=== PATIENT | male | born 1995 | race Caucasian/White ===

== ENCOUNTER 2017-09-14 15:41 | Emergency (ER) | payer OTHER ==
[~2017-09-14] VITALS: Ht 175.3 cm; Wt 77.2 kg
[~2017-09-14 15:41] MED LIST: LISD50CA4 PO; PERM1LIQ TD
[2017-09-14 15:44] VITALS: Ht 175.3 cm; Wt 77.2 kg
--- NOTE | 2017-09-14 16:05 | EMERGENCY ROOM VISIT NOTE ---
History Report prepared by Thomas: Liza Anders Under the Supervision of: Dr. Rajiv La M.D. 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 Positive coughing up dark blood. Negative lightheadedness and abdominal pain. Movement is a worsening factor for his pain and he describes it as "tightness more than pain." He reports he was playing lacrosse and got hit with the ball. He states he was drinking all day yesterday. Source of History: patient Onset: 1 hour precinct captain Position: other (left rib) Quality: other ("tightness") Modifying Factors (Worsening): movement Associated Symptoms: + cough (dark blood) Note: Negative lightheadedness. Review of Systems See HPI for pertinent positives and negatives. A total of ten systems were reviewed and were otherwise negative. Past Medical & Surgical Medical Problems: (1) ADHD (attention deficit hyperactivity disorder) (2) No pertinent past medical history Surgical Problems: (1) H/O adenoidectomy Family History Patient reports no known family medical history. Social History Smoking Status: Never Smoker Alcohol Use: occasionally Marital Status: single Housing Status: lives with roommate Occupation Status: [employer] student Current/Historical Medications Scheduled Lisdexamfetamine Dimesylate (Vyvanse), 50 MG PO DAILY Allergies Coded Allergies: No Known Allergies (Unverified , 08/06/15) Physical Exam Vital Signs Date Time Temp Pulse Resp B/P (MAP) Pulse Ox O2 Delivery O2 Flow Rate FiO2 09/14/17 15:44 36.9 91 18 135/76 95 Room Air Physical Exam GENERAL: Awake, alert, well-appearing, NAD HENT: Normocephalic, atraumatic. EYES: Normal conjunctiva. Sclera non-icteric. NECK: Supple. No nuchal rigidity. FROM. RESPIRATORY: CTAB, no rhonchi, wheezing, crackles CHEST: Mild reproducible left lateral rib discomfort. 4 x 4 cm area of redness over the same site CARDIAC: RRR, no MRG ABDOMEN: Soft, NTND, BS+ MSK: No chest wall TTP, no LE edema NEURO: GCS 15, CN 2-12 intact, moves all 4s on command SKIN: No rash or jaundice noted. Medical Decision & Procedures ER Provider Diagnostic Interpretation: Radiology results as stated below per my review and radiologist interpretation: L RIBS UNILATERAL WITH PA CHEST CLINICAL HISTORY: L rib pain s/p lacrosse ball to chest trauma COMPARISON STUDY: None FINDINGS: Negative left ribs. Negative chest. IMPRESSION: Negative left ribs. Negative chest. The above report was generated using voice recognition software. It may contain grammatical, syntax or spelling errors. Electronically signed by: Vasiliy Enrique M.D. 09/14/2017 4:45 PM Laboratory Results 09/14/17 16:20 Red Blood Count 5.19, Mean Corpuscular Volume 86.5, Mean Corpuscular Hemoglobin 30.4, Mean Corpuscular Hemoglobin Concent 35.2, Mean Platelet Volume 9.5, Neutrophils (%) (Auto) 77.6, Lymphocytes (%) (Auto) 13.9, Monocytes (%) (Auto) 7.4, Eosinophils (%) (Auto) 0.5, Basophils (%) (Auto) 0.3, Neutrophils # (Auto) 8.68, Lymphocytes # (Auto) 1.55, Monocytes # (Auto) 0.83, Eosinophils # (Auto) 0.06, Basophils # (Auto) 0.03 09/14/17 16:20 Test 09/14/17 16:20 White Blood Count 11.18 K/uL (4.8-10.8) Red Blood Count 5.19 M/uL (4.7-6.1) Hemoglobin 15.8 g/dL (14.0-18.0) Hematocrit 44.9 % (42-52) Mean Corpuscular Volume 86.5 fL (80-100) Mean Corpuscular Hemoglobin 30.4 pg (25-34) Mean Corpuscular Hemoglobin Concent 35.2 g/dl (32-36) Platelet Count 179 K/uL (130-400) Mean Platelet Volume 9.5 fL (7.4-10.4) Neutrophils (%) (Auto) 77.6 % Lymphocytes (%) (Auto) 13.9 % Monocytes (%) (Auto) 7.4 % Eosinophils (%) (Auto) 0.5 % Basophils (%) (Auto) 0.3 % Neutrophils # (Auto) 8.68 K/uL (1.4-6.5) Lymphocytes # (Auto) 1.55 K/uL (1.2-3.4) Monocytes # (Auto) 0.83 K/uL (0.11-0.59) Eosinophils # (Auto) 0.06 K/uL (0-0.5) Basophils # (Auto) 0.03 K/uL (0-0.2) RDW Standard Deviation 40.3 fL (36.4-46.3) RDW Coefficient of Variation 12.6 % (11.5-14.5) Immature Granulocyte % (Auto) 0.3 % Immature Granulocyte # (Auto) 0.03 K/uL (0.00-0.02) Prothrombin Time 11.5 SECONDS (9.0-12.0) Prothromb Time International Ratio 1.1 (0.9-1.1) Activated Partial Thromboplast Time 25.9 SECONDS (21.0-31.0) Partial Thromboplastin Ratio 1.0 Anion Gap 6.0 mmol/L (3-11) Est Creatinine Clear Calc Drug Dose 127.1 ml/min Estimated GFR () 137.3 Estimated GFR (Non- 118.5 BUN/Creatinine Ratio 19.3 (10-20) Calcium Level 9.1 mg/dl (8.5-10.1) Laboratory results reviewed by me Medications Administered Medications (Trade) Dose Ordered Sig/Jose R Route Start Time Stop Time Status Last Admin Dose Admin Ibuprofen (Motrin Tab) 600 mg NOW STAT PO 09/14/17 16:07 09/14/17 16:08 DC 09/14/17 16:21 600 MG Acetaminophen (Tylenol Tab) 650 mg NOW STAT PO 09/14/17 16:07 09/14/17 16:08 DC 09/14/17 16:22 650 MG Tramadol HCl (Ultram Tab) 50 mg NOW STAT PO 09/14/17 16:07 09/14/17 16:08 DC 09/14/17 16:22 50 MG ED Course 1600: The patient was evaluated in room C7. A complete history and physical exam was performed. 1655: I reevaluated the patient. Discussed results and discharge instructions: He verbalized understanding and agreement. The patient is ready for discharge. 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 Positive coughing up dark blood. Negative lightheadedness and abdominal pain. Nursing notes reviewed. Ancillary studies and prior records reviewed. Differential diagnosis: Etiologies such as musculoskeletal pain, PE, gastritis, GI bleed, bronchitis, rib fracture, as well as others were entertained. Patient was seen and evaluated the bedside. Patient stated that he was struck with a lacrosse ball prior to arrival. Patient had some left-sided chest pain. On evaluation the patient does not have any pleuritic chest pain. Patient does have some mild reproducible discomfort. No obvious deformities. Patient does have some redness consistent with his impact injury. Patient was concerned as he noticed some reddish sputum. Of note the patient did drink heavily yesterday durably white weekend. Patient denies any nausea vomiting. Patient denies any blood thinning medications. Patient has no prior history of DVT or PE. Patient did have blood work completed along with a chest x-ray and rib series. Patient's blood work is fairly unremarkable. Patient has a normal H&H, platelet count, coags. Patient was feeling improved. Patient's chest x-ray and rib series negative for pneumothorax or for rib fracture. I discussed with the patient to follow-up and return if any worsening symptoms. Less likely PE given the patient's history and physical exam. Less likely pulmonary contusion and this is likely more MSK related pain. The patient may have an element of gastritis given the patient's [place]ican recent alcohol intake. This is likely the most likely cause of this reddish looking sputum. Patient has not had any hematemesis bright red blood per rectum or melenic stool. Less likely GI bleed. Patient was given strict follow-up, discharge, and return precautions. All questions were answered. Patient was deemed suitable for outpatient follow- up at this time. Patient agreed with the plan of care and was safely discharged home. Medication Reconcilliation Current Medication List: was personally reviewed by me Blood Pressure Screening Patient's blood pressure: Normal blood pressure Blood pressure disposition: Did not require urgent referral Impression Primary Impression: Rib pain on left side Additional Impression: Chest wall contusion Scribe Attestation The scribe's documentation has been prepared under my direction and personally reviewed by me in its entirety. I confirm that the note above accurately reflects all work, treatment, procedures, and medical decision making performed by me. Departure Information Dispostion Home / Self-Care Referrals No Doctor, Assigned (PCP) [facility] Forms HOME CARE DOCUMENTATION FORM, IMPORTANT VISIT INFORMATION, WORK / SCHOOL INSTRUCTIONS Patient Instructions ED Contusion Chest Wall, ED Jo BERKOWITZ [facility] Additional Instructions Please return to the emergency department if you have worsening or recurrent symptoms not amenable to at-home treatment. Please call for a follow-up appointment with her primary care physician. Please take your medications as prescribed. If you have other concerns and/or complaints please feel free to also call your primary care physician's office or return the ED for further evaluation, management, and treatment. You may take 800 mg Ibuprofen every 6 hours as needed for pain/fever with food unless told by your physician not to take NSAIDs. You may take tylenol 1000 mg every 6 hours as needed for pain/fever unless told by your physician to not take it or have liver problems. You may take motrin and tylenol separately or at the same time. Take your medications as prescribed. You have been examined and treated today on an emergency basis only. This is not a substitute for, or an effort to provide, complete comprehensive medical care. It is impossible to recognize and treat all injuries or illnesses in a single emergency department visit. It is therefore important that you follow up closely with [facility], your PCP, and/or your specialist(s). Call as soon as possible for an appointment. Thank you for your time and consideration. I look forward to speaking with you again soon. Please don't hesitate to call us if you have any questions. Problem Qualifiers Additional Impression: Chest wall contusion Encounter type: initial encounter Laterality: left Qualified Codes: S20.212A - Contusion of left front wall of thorax, initial encounter
[2017-09-14] MEDS ORDERED: IBUPROFEN 600 MG TAB PO STA (16:07)
[2017-09-14] MEDS ORDERED: ACETAMINOPHEN 325 MG TAB PO STA (16:07)
[2017-09-14] MEDS ORDERED: TRAMADOL HCL 50 MG TAB PO STA (16:07)
[2017-09-14 16:34] LABS: BASO % 0.3 %; BASO ABS # 0.03 K/uL (0-0.2); EOS % 0.5 %; EOS ABS # 0.06 K/uL (0-0.5); HEMATOCRIT 44.9 % (42-52); HEMOGLOBIN 15.8 g/dL (14.0-18.0); IG# 0.03 K/uL (0.00-0.02); LYMPH % 13.9 %; LYMPH ABS # 1.55 K/uL (1.2-3.4); MEAN CELL VOLUME 86.5 fL (80-100); MEAN CORPUSCULAR HEMOGLOBIN 30.4 pg (25-34); MEAN CORPUSCULAR HGB CONC 35.2 g/dl (32-36); MEAN PLATELET VOLUME 9.5 fL (7.4-10.4); MONO % 7.4 %; MONO ABS # 0.83 K/uL (0.11-0.59); NEUT % 77.6 %; NEUT ABS # 8.68 K/uL (1.4-6.5); PLATELET COUNT 179 K/uL (130-400); RED CELL DISTRIBUTION WIDTH CV 12.6 % (11.5-14.5); RED CELL DISTRIBUTION WIDTH SD 40.3 fL (36.4-46.3); WHITE BLOOD COUNT 11.18 K/uL (4.8-10.8)
--- NOTE | 2017-09-14 16:46 | DIAGNOSTIC IMAGING REPORT ---
L RIBS UNILATERAL WITH PA CHEST CLINICAL HISTORY: L rib pain s/p lacrosse ball to chest trauma COMPARISON STUDY: None FINDINGS: Negative left ribs. Negative chest. IMPRESSION: Negative left ribs. Negative chest. The above report was generated using voice recognition software. It may contain grammatical, syntax or spelling errors. Electronically signed by: Vasiliy Enrique M.D. 09/14/2017 4:45 PM Dictated Date/Time: 09/14/2017 4:43 PM
[2017-09-14 16:49] LABS: INR 1.1 (0.9-1.1); PTT PATIENT 25.9 SECONDS (21.0-31.0)
[2017-09-14 16:55] LABS: CALCIUM 9.1 mg/dl (8.5-10.1); CREATININE 0.92 mg/dl (0.60-1.40); POTASSIUM 3.8 mmol/L (3.5-5.1)
[2017-09-14 17:39] VITALS: BP 162/85; PULSE 67; TEMP 36.9; O2SAT 97
== END 2017-09-14 17:40 | disposition home or self-care (01) ==
LOC: C.EDB 15:43 → C.EDC 17:40
DX: S20.212A Contusion of left front wall of thorax, initial encounter (principal); W21.09XA Struck by other hit or thrown ball, initial encounter; Y93.65 Activity, lacrosse and field hockey; F90.9 Attention-deficit hyperactivity disorder, unspecified type; Z79.899 Other long term (current) drug therapy